=== PATIENT | male | born 1985 | race Caucasian/White ===

== ENCOUNTER 2018-01-05 03:09 | Emergency (ER) | payer MEDICAID ==
[~2018-01-05] VITALS: Ht 170.2 cm; Wt 75.0 kg
[2018-01-05] MEDS ORDERED: PROPARACAINE HCL 0.5% 15 ML OPHTHALMIC SOLUTION OU ONE (04:00)
[2018-01-05] MEDS ORDERED: PROPARACAINE/FLUORESCEIN SOD 0.5-0.25% 0.5 ML OPHTHALMIC SOLUTION OU ONE (04:00)
[2018-01-05 04:45] VITALS: BP 138/89
== END 2018-01-05 05:06 | disposition home or self-care (01) ==
LOC: EMS 03:11
DX: H10.219 Acute toxic conjunctivitis, unspecified eye (principal); F17.210 Nicotine dependence, cigarettes, uncomplicated
CPT/HCPCS: 99283; Z7610